=== PATIENT | female | born 1970 | race Caucasian/White ===

== ENCOUNTER 2023-06-09 12:55 | Outpatient (AMB) | payer OTHER, SELFPAY ==
[2023-06-09 13:09] VITALS: BMI 44.3
--- NOTE | 2023-06-09 13:09 | A.OFFVIS_ITS ---
Intake VS Expanded 06/09/23 13:09 06/19/23 10:42 Height 5 ft 3 in 5 ft 3 in Weight 250 lb 0.067 oz 250 lb BMI 44.3 44.3 Intake Visit Reasons: Obesity Allergies latex [LATEX] Allergy (Mild, Unverified 06/08/20 17:08) RASH amoxicillin [From AUGMENTIN] Allergy (Unknown, Unverified 06/08/20 17:08) RASH clavulanic acid [From AUGMENTIN] Allergy (Unknown, Unverified 06/08/20 17:08) RASH HPI Nutrition Presentation Details Pt presents for MNT for obesity. Pt has hx of PCOS, pre diabetic (5.9% A1c in 02/2023) POTs Pt reports following vegetarian diet Pt's typical meal consists of [employer] gio tea 42 g carbs, 240 , and eggbites 1/2 cup of oatmeal water, and almond mil k and teaspoon of vanilla silke seeds or pure maple syrup lunch: may skip ( chickpea pene with ray, cheese , water or diet coke snack: cheese 6-8 pm potatoes with soy sauce tofu , r ice snack on popcorn Beverages: water, tea, 24 oz /d ETOH/Smoking: denies YHK-Dnrhlbf-Cg.Jeor Equation Height 5 ft 3 in Weight 250 lb Resting Metabolic Rate 1721.05 Calculated Activity Level Sedentary Calories Needed to Maintain Weight 2064.26 Diagnosis Nutrition problem #1 food nutri know defi As related to (etiology) #1 diagnosis As evidenced by (sign/symptom) #1 knowledge deficit of diet Most Recent Diabetes Results: No Data to Display Assessment & Plan Assessment & Plan (1) Morbid obesity with BMI of 40.0-44.9, adult: Code(s): E66.01 - Morbid (severe) obesity due to excess calories; Z68.41 - Body mass index [BMI] 40.0-44.9, adult Plan: wt: 114 Est kcal needs as per MSJ: 2000 (40% carb, 30% protein/fat) Est fluid needs as per 30 ml/d: 3420 Est prot per day as per 1 g/kg bw: 114 Recommend fiber intake : 8-10 g per day and gradually increase to 25-28 g per day for women and 35-38 g for men or as tolerated Recommend sodium intake per day : less than 2000 mg Educated patient on: ( R = reviewed V = verbalizes understanding N/R = needs review N/A = not applicable * Food sources of carbohydrate, adequate serving sizes and its role in various health conditions: R * Differences between complex carbohydrates a simple carbohydrates, role of fiber in diet: R * Differences between types of fats and role in diet (mono on saturated fat fatty acids, saturated fatty acids, trans fats): R * Food sources of sodium in salt and healthy modifications for heart health in kidney health: R * Vitamins and minerals: R * Healthy plate method concept: R * Physical activity: Benefits a precaution: R Patient Instructions: Follow healthy plate method at dinner , reducing total carbs to 60 g at dinner Have a meal replacement at lunch [employer] sent via email Coding Level of Care Code Nutr Indiv Intake (00759) Diagnoses Morbid obesity with BMI of 40.0-44.9, adult E66.01; Z68.41 Time Spent (min) 30
[2023-06-19 10:42] VITALS: BMI 44.3
== END 2023-06-09 13:45 | disposition home or self-care (01) ==
PROVIDERS: PCP Internal Medicine; Visit Provider Dietitian, Registered
DX: E66.01 Morbid (severe) obesity due to excess calories (principal); Z68.41 Body mass index [BMI] 40.0-44.9, adult

== ENCOUNTER → 2023-06-09 12:55 | Outpatient (BNVA) | payer OTHER, SELFPAY | PROVIDERS: PCP Internal Medicine; Visit Provider Dietitian, Registered | DX: E66.01 Morbid (severe) obesity due to excess calories (principal); Z68.41 Body mass index [BMI] 40.0-44.9, adult; Z71.3 Dietary counseling and surveillance | CPT/HCPCS: 97802 ==

== ENCOUNTER 2023-08-11 09:52 | Outpatient (AMB) | payer OTHER, SELFPAY ==
[2023-08-11 09:57] VITALS: BMI 43.9
--- NOTE | 2023-08-11 09:57 | A.OFFVIS_ITS ---
Intake VS Expanded 08/11/23 09:57 Height 5 ft 3 in Weight 248 lb 0.321 oz BMI 43.9 Intake Visit Reasons: pre DM, obesity Allergies latex [LATEX] Allergy (Mild, Unverified 06/08/20 17:08) RASH amoxicillin [From AUGMENTIN] Allergy (Unknown, Unverified 06/08/20 17:08) RASH clavulanic acid [From AUGMENTIN] Allergy (Unknown, Unverified 06/08/20 17:08) RASH HPI Nutrition Presentation Details Pt presents for MNT f/u for obesity. Pt has hx of PCOS, pre diabetic (5.9% A1c in 02/2023) POTs. Pt was referred by Dr. Bhanu Mendez from [facility] Pt reports working on small diet modifications but challenges with consistency Most Recent Diabetes Results: No Data to Display Assessment & Plan Assessment & Plan (1) Morbid obesity with BMI of 40.0-44.9, adult: Code(s): E66.01 - Morbid (severe) obesity due to excess calories; Z68.41 - Body mass index [BMI] 40.0-44.9, adult Plan: wt: 114 Est kcal needs as per MSJ: 2000 (40% carb, 30% protein/fat) Est fluid needs as per 30 ml/d: 3420 Est prot per day as per 1 g/kg bw: 114 Recommend fiber intake : 8-10 g per day and gradually increase to 25-28 g per day for women and 35-38 g for men or as tolerated Recommend sodium intake per day : less than 2000 mg Educated patient on: ( R = reviewed V = verbalizes understanding N/R = needs review N/A = not applicable * Food sources of carbohydrate, adequate serving sizes and its role in various health conditions: R * Differences between complex carbohydrates a simple carbohydrates, role of fiber in diet: R * Differences between types of fats and role in diet (mono on saturated fat fatty acids, saturated fatty acids, trans fats): R * Food sources of sodium in salt and healthy modifications for heart health in kidney health: R * Vitamins and minerals: R * Healthy plate method concept: R * Physical activity: Benefits a precaution: R Patient Instructions: Keep track of your daily calories , work at reducing calories to 1700 per day) Work on reducing calories from sugars/carbs and fats see 1700 calorie meal idea plan Coding Level of Care Code Nutr Indiv Subseq (29461) Diagnoses Morbid obesity with BMI of 40.0-44.9, adult E66.01; Z68.41 Time Spent (min) 30
== END 2023-08-11 10:40 | disposition home or self-care (01) ==
PROVIDERS: PCP Internal Medicine; Visit Provider Dietitian, Registered
DX: E66.01 Morbid (severe) obesity due to excess calories (principal); Z68.41 Body mass index [BMI] 40.0-44.9, adult

== ENCOUNTER → 2023-08-11 09:52 | Outpatient (BNVA) | payer OTHER, SELFPAY | PROVIDERS: PCP Internal Medicine; Visit Provider Dietitian, Registered | DX: E66.01 Morbid (severe) obesity due to excess calories (principal); Z68.41 Body mass index [BMI] 40.0-44.9, adult; R73.03 Prediabetes; Z71.3 Dietary counseling and surveillance | CPT/HCPCS: 97803 ==